=== PATIENT | female | born 1965 | race Caucasian/White ===

== ENCOUNTER 2020-08-23 08:28 | Day surgery (SDC) | payer BC, SELFPAY ==
[2020-08-16 15:56] VITALS: BMI 18.6
--- NOTE | 2020-08-20 12:12 | P.CONAN_ITS ---
Documented by User: Renita Renee 08/20/20 12:13 HPI - Anesthesia Eval Consult details Narrative: 55yo F for colonoscopy [facility] Past Medical History Medical History (Updated 08/16/20 @ 15:50 by Carlita Linn) Hypotension Migraine PONV (postoperative nausea and vomiting) Umbilical hernia Surgical History Surgical History (Updated 08/16/20 @ 15:50 by Carlita Linn) History of 2 sections Hx of colonoscopy Social History Social History Smoking Status: Never smoker Second Hand Smoke Exposure: No Use of substances other than those prescribed or required for medical reasons: No Advance Directives: No Advance Directives Information Provided: No Meds Allergies Allergy/AdvReac Type Severity Reaction Status Date / Time No Known Allergies Allergy Verified 08/16/20 16:08 Home Medications Medication Instructions Recorded Confirmed Type melatonin 5 mg PO BEDTIME PRN 08/16/20 08/16/20 History bz-nj-aluk-FA-Ca carb-vit K 1 tab PO DAILY 08/16/20 08/16/20 History [Women's Multivitamin] zolmitriptan 1 tab PO 08/16/20 History Exam Exam Date and Time: August 20, 2020 1212 Height,Weight and Vital Signs: Height 5 ft 1.5 in Weight 45.359 kg Assessment and Plan Assessment Anesthesia Assessment: Chart Reviewed Documented by User: Nida Nelson 08/23/20 08:57 [facility] Past Medical History Medical History (Updated 08/16/20 @ 15:50 by Carlita Linn) Hypotension Migraine PONV (postoperative nausea and vomiting) Umbilical hernia Surgical History Surgical History (Updated 08/16/20 @ 15:50 by Carlita Linn) History of 2 sections Hx of colonoscopy Social History Social History Smoking Status: Never smoker Second Hand Smoke Exposure: No Use of substances other than those prescribed or required for medical reasons: No Advance Directives: No Advance Directives Information Provided: No Meds Allergies Allergy/AdvReac Type Severity Reaction Status Date / Time No Known Allergies Allergy Verified 08/16/20 16:08 Home Medications Medication Instructions Recorded Confirmed Type melatonin 5 mg PO BEDTIME PRN 08/16/20 08/16/20 History bx-nz-hwwx-FA-Ca carb-vit K 1 tab PO DAILY 08/16/20 08/16/20 History [Women's Multivitamin] zolmitriptan 1 tab PO 08/16/20 History Assessment and Plan Assessment Anesthesia Assessment: Anesthesia Plan Discussed and Consent Obtained Final Anesthetic Review NPO: Yes ASA Class: II Final Preanesthetic Review: No Changes in Pt Med Stat, Meds & Allergies Reviewed and Consent Obtained/Reviewed Patient Risk: Low Procedure Risk: Low Anesthetic Plan Anesthetic Plan: MAC:
--- NOTE | 2020-08-23 08:58 | HO.ANESPROP2 ---
[facility] Past Medical History Medical History (Updated 08/16/20 @ 15:50 by Carlita Linn) Hypotension Migraine PONV (postoperative nausea and vomiting) Umbilical hernia Surgical History Surgical History (Updated 08/16/20 @ 15:50 by Carlita Linn) History of 2 sections Hx of colonoscopy Social History Social History Smoking Status: Never smoker Second Hand Smoke Exposure: No Use of substances other than those prescribed or required for medical reasons: No Advance Directives: No Advance Directives Information Provided: No Meds Allergies Allergy/AdvReac Type Severity Reaction Status Date / Time No Known Allergies Allergy Verified 08/16/20 16:08 Home Medications Medication Instructions Recorded Confirmed Type melatonin 5 mg PO BEDTIME PRN 08/16/20 08/16/20 History qw-oz-qfjr-FA-Ca carb-vit K 1 tab PO DAILY 08/16/20 08/16/20 History [Women's Multivitamin] zolmitriptan 1 tab PO 08/16/20 History Exam Exam Date and Time: August 23, 2020 0858 Height,Weight and Vital Signs: Height 5 ft 1.5 in Weight 45.359 kg Airway Mallampati Class: II TM Dist: >3cm Neck ROM: Full Heart: RRR Lungs: CTA BL Assessment and Plan Assessment Anesthesia Assessment: Anesthesia Plan Discussed and Consent Obtained Final Anesthetic Review NPO: Yes ASA Class: II Final Preanesthetic Review: No Changes in Pt Med Stat, Meds & Allergies Reviewed and Consent Obtained/Reviewed Patient Risk: Low Procedure Risk: Low Anesthetic Plan Anesthetic Plan: MAC: Disposition: Standard PACU
--- NOTE | 2020-08-23 09:02 | HO.POSTANES ---
Documented by User: Jeramy Vick CRNA 08/23/20 09:18 Post Anesthesia Evaluation Post Anesthesia Evaluation Anesthesia: Monitored Documented by User: Nida Nelson 08/23/20 10:14 Post Anesthesia Evaluation Post Anesthesia Evaluation Vital Signs: 92/56; 81; 19; 97% temp 97.1 Anesthesia: Monitored Mental Status: Awake Pain Control: Satisfactory Nausea/Vomiting: None Hydration: Adequate Anesthesia-Related Issues: No Anes. Related Issues
[2020-08-23 09:11] VITALS: PULSE 74; RESP 18; TEMP 36.9; O2SAT 100
[2020-08-23] MEDS: Lactated Ringers 1,000 ML 200 ML IVCONT (09:19)
[2020-08-23 10:10] VITALS: BP 92/56; PULSE 81; RESP 19; TEMP 36.2; O2SAT 97
[2020-08-23 10:25] VITALS: BP 95/57; O2SAT 99
[2020-08-23 10:30] VITALS: BP 97/62; O2SAT 100
[2020-08-23 10:35] VITALS: BP 100/68; PULSE 69; O2SAT 100
--- NOTE | 2020-08-23 10:35 | OP_ITS ---
SURGEON: Mark Anthony Mims MD INDICATIONS: The patient presents for evaluation of colorectal cancer screening and family history of colon cancer. Full consent has been obtained from her for this, including risks of bleeding and perforation. PREOPERATIVE DIAGNOSIS: POSTOPERATIVE DIAGNOSIS: PROCEDURE PERFORMED: Colonoscopy to the cecum and terminal ileum. ESTIMATED BLOOD LOSS: COMPLICATIONS: ANESTHESIA: Monitored anesthesia care. ASSISTANTS: SPECIMENS: PREOPERATIVE DIAGNOSES: Colorectal cancer screening and family history of colon cancer. POSTOPERATIVE DIAGNOSES: Colorectal cancer screening and family history of colon cancer, small internal hemorrhoids. DESCRIPTION OF PROCEDURE: The patient was placed in the left lateral decubitus position. The digital rectal exam revealed no abnormalities. The Olympus video pediatric colonoscope was entered into the rectum and advanced easily to the cecum. Once in the cecum, I did identify normal-appearing cecal pouch with appendiceal orifice and a normal-appearing ileocecal valve. The terminal ileum was cannulated and appeared normal. Scope was withdrawn back in the colon. The entire cecum and ileocecal valve appeared normal. The scope was slowly withdrawn assessing all mucosal surfaces carefully. Preparation was excellent. I did not visualize any sign of polyps, colitis, nor angiodysplasia. In the rectum, scope was retroflexed visualizing internal hemorrhoids, but no other pathology. The rectal mucosa appeared normal. The scope was straightened out and withdrawn from the patient. She tolerated the procedure well and was returned to the recovery area in stable condition. IMPRESSION: Small internal hemorrhoids, otherwise normal colonoscopy. PLAN: Given her family history, I would recommend a followup colonoscopy in 5 years for further screening. She will otherwise see me on a p.r.n. basis. MD ILDEFONSO Pina/TI / [phone]
--- NOTE | 2020-08-23 11:03 | HO.POSTANES ---
Post Anesthesia Evaluation Post Anesthesia Evaluation Vital Signs: Vital Signs Temp Pulse Resp BP Pulse Ox 08/23/20 10:35 69 100/68 100 08/23/20 10:30 97/62 100 08/23/20 10:25 95/57 L 99 08/23/20 10:10 97.1 F 81 19 92/56 L 97 08/23/20 09:11 98.5 F 74 18 100 Anesthesia: Monitored Mental Status: Awake Pain Control: Satisfactory Nausea/Vomiting: None Hydration: Adequate Anesthesia-Related Issues: No Anes. Related Issues
== END 2020-08-23 11:09 | disposition home or self-care (01) ==
PROVIDERS: Internal Medicine; PCP Internal Medicine; Visit Provider Anesthesiology
PROC: 0DJD8ZZ Inspection of Lower Intestinal Tract, Via Natural or Artificial Opening Endoscopic (ICD-10-PCS; CPT 45378; principal; 2020-08-23 09:30)
DX: Z12.11 Encounter for screening for malignant neoplasm of colon (principal); Z80.0 Family history of malignant neoplasm of digestive organs; K64.8 Other hemorrhoids; I95.9 Hypotension, unspecified; G43.909 Migraine, unspecified, not intractable, without status migrainosus; Z79.899 Other long term (current) drug therapy
CPT/HCPCS: 45378; J2405